=== PATIENT | male | born 1940 | race Caucasian/White ===

== ENCOUNTER 2024-02-17 13:10 | Emergency (ER) | payer OTHER, SELFPAY ==
[2024-02-17 13:14] VITALS: BP 120/74
--- NOTE | 2024-02-17 14:02 | ED.GENMED ---
History of Present Illness
General
Chief Complaint: Skin Surface Trauma
Time Seen by Provider: 02/17/24 13:28
History of Present Illness
History of Present Illness:
83-year-old male presents the emergency department for evaluation of persistent bleeding from multiple skin tears to the left upper arm. Initial injury was 2 days ago, has been bandaging and clean the wounds on his own at home. Concern for
persistent bleeding. Does take Eliquis.
Past History
Past History
ED Past Medical History: CAD, HTN, Hypercholesterolemia, NIDDM, [place] (X 2) and Other (hiatal hernia, pacemaker)
ED Past Surgical History: Cardiac (Stent, pacemaker) and Other (stents, pacemaker, hernia repair)
Social History
Tobacco: Non-smoker
Alcohol: None
Personal:
Living: with family
Review of Systems
Review of Systems
Allergies reviewed?: Yes
All Other Systems: ROS reviewed and negative except as documented in HPI and ROS
Phy Exam
Physical Exam
Physical Exam:
GEN: Well appearing, NAD, WDWN
HEENT: Oral mucosa moist, no scleral icterus
Cardiac: Regular rate
Lung: No respiratory distress, no tachypnea
MSK: No gross deformity or injuries
Skin: Good color, no pallor or jaundice. Large skin tear noted to the left dorsal forearm just distal to the elbow with minimal active bleeding. Two 2 cm skin tears to the left posterior upper arm just proximal to the elbow as well as one to the
proximal arm both with minimal active bleeding
Neuro: AO x3, moves all extremities freely
Psych: Calm, cooperative
Course
Vital Signs
Initial and Last Documented VS:
Initial Vital Signs
Temp Pulse Resp BP Pulse Ox
97.5 F 117 18 120/74 96
02/17/24 13:14 02/17/24 13:14 02/17/24 13:14 02/17/24 13:14 02/17/24 13:14
Last Documented Vital Signs
Temp Pulse Resp BP Pulse Ox
97.5 F 98 18 128/68 98
02/17/24 13:14 02/17/24 14:07 02/17/24 14:07 02/17/24 14:07 02/17/24 14:07
MDM/Problems Addressed
MDM/Problems Addressed:
Wounds irrigated and dressed with dressings. Discussed wound care and outpatient follow-up
*Critical Care Note
Total Time (30-74mins, 75-104mins- exclusive of procedures): Not Applicable
ED Attending Note
-
Portions of this chart may have been created with voice recognition software.� Occasional wrong word or��sound alike� substitutions may have occurred due to the inherent limitations of voice recognition software.
Discharge Plan
Departure
Patient Disposition: Home (Routine Discharge)
Date of Disposition: 02/17/24
Time of Disposition: 14:02
Patient with high blood pressure during this ER visit?: No
Discharge Problem:
Multiple skin tears
Instructions: Wound Care (DC)
Prescriptions:
No Action
atorvastatin 40 MG tablet
40 mg PO DAILY
carvedilol 6.25 MG tablet
6.25 mg PO BID
omeprazole 40 MG capsule,delayed release(DR/EC)
40 mg PO DAILY
apixaban [Eliquis] 2.5 MG tablet
2.5 mg PO BID
furosemide 80 MG tablet
80 mg PO BID@0800,1600 Qty: 60 0RF
metolazone 5 MG tablet
5 mg PO DAILYPRN PRN (Reason: weight gain/swelling)
albuterol sulfate 1 PUFF HFA aerosol inhaler
1 puff inhalation R Q6HPRN PRN (Reason: sob/wheezing)
spironolactone 25 MG tablet
25 mg PO DAILY Qty: 30 0RF
potassium chloride 10 MEQ tablet,ER particles/crystals
20 meq PO DAILY Qty: 0 0RF
Referrals:
Rogelio Denis Jr., DO [Family Provider] -
Savage Soto MD [Active] -
Activity Restrictions/Additional Instructions:
Change the dressing daily with the provided bandages. Follow up with wound care center as needed
Interventions
Interventions:
*Risk Screen - Suicide Last Done: 02/17/24 14:07
*General Assessment Last Done: 02/17/24 13:14
*Neglect/Abuse Screening Last Done: 02/17/24 14:07
ED- Fall Risk Assessment Last Done: 02/17/24 14:07
*ED COVID-19 Vaccine History Last Done: 02/17/24 13:14
*Nursing Disposition Last Done: 02/17/24 14:07
ED-Skin Assessment Last Done: 02/17/24 14:09
Discharge Date and Time
Discharge Date/Time: 02/17/24 14:09
Print Language: BERMUDIAN
[2024-02-17 14:07] VITALS: BP 128/68
== END 2024-02-17 14:09 | disposition home or self-care (01) ==
LOC: EMR 13:10
PROVIDERS: EMERGENCY PHYSICIAN Emergency Medicine; FAMILY PHYSICIAN Family Medicine
DX: S41.112A Laceration without foreign body of left upper arm, initial encounter (principal); X58.XXXA Exposure to other specified factors, initial encounter; I25.10 Atherosclerotic heart disease of native coronary artery without angina pectoris; I10 Essential (primary) hypertension; E78.00 Pure hypercholesterolemia, unspecified; E11.9 Type 2 diabetes mellitus without complications; I25.2 Old myocardial infarction; Z95.0 Presence of cardiac pacemaker; Z95.5 Presence of coronary angioplasty implant and graft
CPT/HCPCS: 99282

== ENCOUNTER → 2024-02-23 08:03 | Outpatient (REF) | payer OTHER, SELFPAY | LOC: WOUND 08:03 | PROVIDERS: ATTENDING PHYSICIAN Surgery; FAMILY PHYSICIAN Family Medicine | DX: S51.002A Unspecified open wound of left elbow, initial encounter (principal); E11.22 Type 2 diabetes mellitus with diabetic chronic kidney disease; I25.10 Atherosclerotic heart disease of native coronary artery without angina pectoris; I49.5 Sick sinus syndrome; N18.32 Chronic kidney disease, stage 3b; I50.9 Heart failure, unspecified; I50.32 Chronic diastolic (congestive) heart failure; X58.XXXA Exposure to other specified factors, initial encounter | CPT/HCPCS: 97597; 97598; 99203 ==

== ENCOUNTER → 2024-02-29 10:20 | Outpatient (REF) | payer OTHER, SELFPAY | LOC: WOUND 10:20 | PROVIDERS: ATTENDING PHYSICIAN Surgery; FAMILY PHYSICIAN Family Medicine | DX: S51.001A Unspecified open wound of right elbow, initial encounter (principal); S51.002A Unspecified open wound of left elbow, initial encounter; I25.10 Atherosclerotic heart disease of native coronary artery without angina pectoris; N18.2 Chronic kidney disease, stage 2 (mild); I49.5 Sick sinus syndrome; N18.32 Chronic kidney disease, stage 3b; I50.9 Heart failure, unspecified; I50.32 Chronic diastolic (congestive) heart failure; W19.XXXA Unspecified fall, initial encounter; Y92.003 Bedroom of unspecified non-institutional (private) residence as the place of occurrence of the external cause; E11.22 Type 2 diabetes mellitus with diabetic chronic kidney disease | CPT/HCPCS: 99213 ==

== ENCOUNTER → 2024-03-07 10:25 | Outpatient (REF) | payer OTHER, SELFPAY | LOC: WOUND 10:25 | PROVIDERS: ATTENDING PHYSICIAN Surgery; FAMILY PHYSICIAN Family Medicine | DX: S51.001A Unspecified open wound of right elbow, initial encounter (principal); S51.002A Unspecified open wound of left elbow, initial encounter; E11.22 Type 2 diabetes mellitus with diabetic chronic kidney disease; I25.10 Atherosclerotic heart disease of native coronary artery without angina pectoris; N18.2 Chronic kidney disease, stage 2 (mild); I49.5 Sick sinus syndrome; N18.32 Chronic kidney disease, stage 3b; I50.9 Heart failure, unspecified; I50.32 Chronic diastolic (congestive) heart failure; W19.XXXA Unspecified fall, initial encounter | CPT/HCPCS: 99212 ==

== ENCOUNTER → 2024-06-04 11:00 | Outpatient (REF) | payer OTHER, SELFPAY | LOC: HWRCS 11:00 | PROVIDERS: ATTENDING PHYSICIAN Internal Medicine Cardiovascular Disease; FAMILY PHYSICIAN Family Medicine | DX: I50.32 Chronic diastolic (congestive) heart failure (principal); I48.0 Paroxysmal atrial fibrillation; I49.5 Sick sinus syndrome; Z95.0 Presence of cardiac pacemaker | CPT/HCPCS: 93306 ==

== ENCOUNTER 2024-08-23 06:06 | Day surgery (SDC) | payer OTHER, SELFPAY ==
--- NOTE | 2024-08-16 09:07 | HPS.HSE ---
Family Physician
-
Family Physician: NO INTERVIEW UNKNOWN
Chief Complaint
-
Sick sinus syndrome. Congestive heart failure. Presence of pacemaker.
History of Present Illness
The patient is an 83 year old male presenting today for sick sinus syndrome. He did undergo a pacemaker implantation secondary to this diagnosis in 2015. He also has congestive heart failure for which he appears relatively well
compensated. He is on guideline directed medical therapy with Jardiance, Furosemide, and Carvedilol. His ejection fraction was noted to be preserved on his most recent echocardiogram in May 2024. His pacemaker battery has reached replacement
indication and he will, therefore, proceed with a dual chamber pacemaker generator change at this time. He denies any current complaints today such as chest pain, shortness of breath at rest, palpitations, nausea, vomiting, diarrhea,
lightheadedness, dizziness, cough, sore throat, or fever.
Medical History
Past Medical History
Past Medical History: Reports Other
Additional Past Medical History:
1. Sick sinus syndrome, status post pacemaker implantation 2015.
2. Congestive heart failure, preserved ejection fraction.
3. Hypertension.
4. Hyperlipidemia.
5. Coronary artery disease, status post PCI with drug eluting stent to mid left circumflex 2014.
6. Paroxysmal atrial fibrillation, oral anticoagulation with Eliquis.
7. PVCs.
8. Mild mitral regurgitation.
9. Venous varicosities, status post right lower extremity vein stripping.
10. Probable obstructive sleep apnea.
11. Chronic kidney stage stage 3.
12. Non-insulin dependent diabetes.
13. GERD.
14. Hiatal hernia.
15. Gastric polyps.
16. Dysphagia.
17. Essential tremor.
18. Peripheral neuropathy with associated ambulatory dysfunction.
19. Melanoma, status post excision.
20. Right lower extremity Staph cellulitis, 11/2020, treated with Doxycycline.
21. Depression.
Past Surgical History: Reports Other
Additional Past Surgical History:
1. Pacemaker implant.
2. PCI with drug-eluting stent to mid left circumflex.
3. Abdominal hernia repair.
4. Right lower extremity venous varicosity stripping.
5. Melanoma excision.
6. Endoscopy.
Social History
Tobacco: Non-smoker
Alcohol: None
Living: With Family (in a 1st floor condo. )
Family History
Family History: Not pertinent
Allergies / Home Medications
Allergy/Medication List:
Home medications:
1. Eliquis 5 mg p.o. twice a day.
2. Atorvastatin 40 mg p.o. daily.
3. Carvedilol 6.25 mg p.o. twice a day.
4. Cyanocobalamin 1000 mcg p.o. daily.
5. Jardiance 10 mg p.o. daily.
6. Furosemide 80 mg p.o. daily.
7. Omeprazole 40 mg p.o. daily.
8. Potassium chloride 10 meq p.o. daily.
Allergies: No known allergies.
Review of Systems
-
A 12 point ROS was completed and negative except as noted: Yes
Physical Exam
Vital Signs
Blood pressure 106/71. Heart rate 79. Respirations 18. Pulse ox 96% on room air.
Height 5 feet, 8 inches. Weight 79.5 kg. BMI 26.6.
Physical Exam
General: Well Developed, Well Nourished and No Apparent Distress
HEENT: NormoCephalic, Moist mucous membranes, Atraumatic and Hearing Impaired
Respiratory: Clear
Cardiac: Regular Rhythm (with occasional ectopy. ) and Other (Pacemaker site intact. )
GI: Soft, Non Tender and Non Distended
Musculoskeletal: No Edema and Other (The patient presents in a wheelchair today. He does ambulate with a single point cane. )
Skin: Warm and Dry
Neuro: AO x 3 and Nonfocal/grossly intact
Laboratory Results
-
DIAGNOSTIC STUDIES as of 08/16/2024: White blood cell count 4.8. Hemoglobin 13.6. Platelet count 157,000. Sodium 139. Potassium 4.7. BUN 16. Creatinine 1.3. Glucose 106. Calcium 9.0. AST 19. ALT 13. Albumin 3.5.
EKG 08/16/2024: Atrial-sensed ventricular-paced rhythm with occasional AV dual-paced complexes and occasional and consecutive PVCs.
Echocardiogram 06/04/2024: Normal left ventricular size, wall thickness, and systolic function. Ejection fraction is 55-60% by visual assessment. Normal right ventricular size and function. Mild tricuspid regurgitation. Estimated pulmonary artery
pressure of 23 mmHg, assuming a right atrial pressure of 3 mmHg. Compared to prior from July 12, 2023, no significant change.
Impression/Plan
-
IMPRESSION/PLAN:
1. Sick sinus syndrome, congestive heart failure, and presence of pacemaker: The patient is in need of a dual chamber pacemaker generator change with Dr. Jayant Rothman on 08/23/2024. The benefits and risks of the procedure have been explained to the
patient. The patient understands these risks and wishes to proceed. He will hold his Eliquis the night before and morning of his procedure.
[2024-08-16 10:18] VITALS: BMI 26.7
[2024-08-16 11:01] LABS: % Eosinophils 4.1 % (0-6); % Immature Granulocytes 0.6 % (0-0.5); % Lymphocytes 7.9 % (20.5-51.1); % Monocytes 6.4 % (1.7-9.3); Absolute Basophils 0.1 10^3/uL (0-0.2); Absolute Eosinophils 0.2 10^3/uL (0-0.7); Absolute Lymphocytes 0.4 10^3/uL (1.2-3.4); Absolute Monocytes 0.3 10^3/uL (0.1-0.6); Absolute Neutrophils 3.9 10^3/uL (1.4-6.5); Hematocrit 40.9 % (39.0-52.0); Hemoglobin 13.6 g/dL (13.0-18.0); Mean Corp Hgb Conc. 33.3 g/dL (33.0-37.0); Mean Corpuscular Volume 102.3 fL (80.0-94.0); Mean Platelet Volume 10.4 fL (7.4-10.4); Nucleated Red Blood Cells % 0 % (-); Platelet Count 157 10^3/uL (130-400); White Blood Cell Count 4.8 10^3/uL (4.8-10.8)
[2024-08-16 11:16] LABS: ALT (SGPT) 13 U/L (0-50); AST (SGOT) 19 U/L (17-59); Albumin 3.5 g/dl (3.5-5.0); Alkaline Phosphatase 156 U/L (38-126); Blood Urea Nitrogen 16 mg/dl (9-20); Carbon Dioxide 28 mmol/L (22-30); Chloride 105 mmol/L (98-107); Estimated Creatinine Clearance 41 ml/min; Glucose 106 mg/dl (70-99); Potassium 4.7 mmol/L (3.5-5.1); Sodium 139 mmol/L (135-145); Total Bilirubin 1.3 mg/dl (0.2-1.3); Total Protein 6.8 g/dl (6.3-8.2); eGFR 54.17
[2024-08-23 06:47] VITALS: BP 111/73
[2024-08-23 06:48] VITALS: BMI 25.1
[2024-08-23 07:08] LABS: Glucose - Point of Care 88 mg/dl (70-99)
[2024-08-23 08:54] VITALS: BP 95/65
--- NOTE | 2024-08-23 09:02 | ITS.CL.PACE ---
Telemarketing Agent - Pacemaker Implant
Pacemaker Implant
Procedure Report:
Date of Procedure: August 23, 2024.
Procedures: Dual chamber pacemaker generator change. Pacemaker pulse generator explantation and pacemaker pulse generator implantation.
Indication: Pacemaker at [facility] from natural battery depletion. The pacemaker is for the treatment of nonreversible symptomatic bradycardia due to sinus node dysfunction.
Performing physician: Jayant Rothman MD, [facility].
Implant: Pacemaker Pulse Generator: Medtronic; Model# W1DR01; Serial# [id number].
Explanted Pacemaker Pulse Generator (Implanted 10/14/2014): Medtronic; Model# [id number]; Serial# [id number].
Retained Leads (Implanted 10/14/2014):
RA: Medtronic: Model# 5076-52; Serial# [id number].
RV: Medtronic; Model# 5076-58; Serial# [id number].
Technique: A time out was performed. The procedure site was identified. The patient was anesthetized by the anesthesia service. Preoperative cefazolin was administered prior to skin incision. The patient was prepped and draped in the usual fashion.
Local anesthetic was applied to the left prepectoral subcutaneous tissue. A 3 inch incision was made over the pulse generator. The capsule was entered with Bovie cautery. The old pacemaker pulse generator was explanted. No Bovie cautery was applied
to the lead system. The leads were appropriately attached to the new device. The pocket was irrigated with antibiotic solution. Hemostasis was excellent. The device and leads were placed in the pocket. The incision was closed in three layers with
absorbable suture. Steri-strips and a silver impregnated dressing were applied. The estimated blood loss was 1 mL. There were no complications. No fluoroscopy.
Lead Analysis:
RA lead: P: 3 mV; Threshold: 1 V @ 0.4 ms; Impedance: 456 ohms.
RV lead: R: 4.3 mV; Threshold: 0.75 V @ 0.4 ms; Impedance: 399 ohms.
Final Programming: MVP (DDDR <=> AAIR) 60 - 130 bpm.
Conclusion: Uncomplicated Medtronic pacemaker change. The pacemaker is MRI conditional.
Recommendation: Routine post pacemaker care.
cc: Shoaib Cox DO and Rogelio Denis DO.
[2024-08-23 09:09] VITALS: BP 88/55
[2024-08-23 09:24] VITALS: BP 91/59
[2024-08-23 09:38] VITALS: BP 92/50
[2024-08-23 09:53] VITALS: BP 91/57
== END 2024-08-23 10:15 | disposition home or self-care (01) ==
LOC: CATH 06:06
PROVIDERS: ATTENDING PHYSICIAN Internal Medicine Cardiovascular Disease; FAMILY PHYSICIAN Family Medicine; OTHER PHYSICIAN Internal Medicine Cardiovascular Disease
DX: Z45.010 Encounter for checking and testing of cardiac pacemaker pulse generator [battery] (principal); I49.5 Sick sinus syndrome; I11.0 Hypertensive heart disease with heart failure; I50.9 Heart failure, unspecified; E78.5 Hyperlipidemia, unspecified; Z95.5 Presence of coronary angioplasty implant and graft; I25.10 Atherosclerotic heart disease of native coronary artery without angina pectoris; E11.42 Type 2 diabetes mellitus with diabetic polyneuropathy; Z79.84 Long term (current) use of oral hypoglycemic drugs; K21.9 Gastro-esophageal reflux disease without esophagitis; K44.9 Diaphragmatic hernia without obstruction or gangrene; I48.0 Paroxysmal atrial fibrillation; Z79.01 Long term (current) use of anticoagulants; K31.7 Polyp of stomach and duodenum; G25.0 Essential tremor; R13.10 Dysphagia, unspecified; Z85.820 Personal history of malignant melanoma of skin; F32.A Depression, unspecified; Z79.899 Other long term (current) drug therapy
CPT/HCPCS: 33228; 36415; 80053; 82962; 85025; 93005; C1785